=== PATIENT | male | born 1965 | race Caucasian/White ===

== ENCOUNTER 2018-08-28 07:56 | Day surgery (SDC) | payer BC ==
[~2018-08-28 07:56] MED LIST: Buffered Lidocaine 1% SYRIN* 1 ML/SYRINGE INTRADERM ONE; Dexamethasone IV* 4 MG/ML 1 ML (4 MG) IV SLOW PU ONE; Famotidine IV* 10 MG/ML 2 ML (20 mg) IV ONE; Lactated Ringers 1000 ML Bag* 1,000 ML IV SCH
[2018-08-28] MEDS ORDERED: Famotidine IV* 10 MG/ML 2 ML (20 mg) ONE (08:23)
[2018-08-28] MEDS ORDERED: Dexamethasone IV* 4 MG/ML 1 ML (4 MG) ONE (08:23)
[2018-08-28] MEDS ORDERED: ceFOXitin 2 GM IVPREMIX* 2 GM/50 ML BAG ONE (08:23)
[2018-08-28] MEDS ORDERED: Lidocaine 1% INJ* 10 MG/ML 30 ML SDV ONE (08:59)
[2018-08-28] MEDS ORDERED: Bupivacaine 0.5% W/EPI SDV* 30 ML VIAL ONE (08:59)
[2018-08-28] MEDS ORDERED: Midazolam* 1 MG/ML 5 ML VIAL (5 MG) ONE (09:06)
[2018-08-28] MEDS ORDERED: fentaNYL* 50 MCG/ML 5 ML VIAL (250 MCG VIAL) ONE (09:06)
[2018-08-28] MEDS ORDERED: Propofol* 10 MG/ML 20 ML BTL ONE ×2 (09:06→10:11)
[2018-08-28] MEDS ORDERED: Ketorolac INJ* 30 MG/ML 1 ML VIAL ONE (09:06)
[2018-08-28] MEDS ORDERED: Ondansetron INJ* 2 MG/ML VIAL ONE (09:09)
[2018-08-28] MEDS ORDERED: Lidocaine 2% PF * 5 ML VIAL ONE (09:22)
[2018-08-28] MEDS ORDERED: Glycopyrrolate IV* 0.2 MG/ML 1 ML VIAL ONE (10:10)
[2018-08-28] MEDS ORDERED: EPHEDrine (Pressors)* 50 MG/ML VIAL ONE (10:12)
[2018-08-28] MEDS ORDERED: Bacitracin OINTMENT* 0.5% 0.5 oz TUBE ONE (10:53)
[2018-08-28] MEDS ORDERED: oxyCODONE/Acetamin 5/325 MG* TAB PO ONE (11:14)
[2018-08-28] MEDS ORDERED: Ondansetron INJ* 2 MG/ML VIAL IV PRN (11:15)
[2018-08-28] MEDS ORDERED: Naloxone* 0.4 MG/ML 1 ML VIAL IV PRN (11:15)
[2018-08-28] MEDS ORDERED: oxyCODONE/Acetamin 5/325 MG* TAB PO PRN (11:15)
[2018-08-28] MEDS ORDERED: DiMENhydriNATE IV* 50 MG/ML VIAL IV PUSH PRN (11:15)
[2018-08-28] MEDS ORDERED: fentaNYL* 50 MCG/ML 2 ML VIAL (100 MCG VIAL) IV PRN (11:15)
[2018-08-28 12:14] VITALS: BP 106/71
--- NOTE | 2018-08-28 22:17 | OP ---
DATE OF OPERATION: 08/28/18 - [facility] DATE OF : 65 SURGEON: Dr. Rosas. RETIREMENT ADMINISTRATOR: Marcela Dubon NP. ANESTHESIOLOGIST: Dr. Vickers. ANESTHESIA: General with local. PRE-OP DIAGNOSIS: Tubulovillous adenoma on the distal rectum. POST-OP DIAGNOSIS: Tubulovillous adenoma on the distal rectum. OPERATIVE PROCEDURE: Transanal excision of a tubulovillous adenoma on the distal rectum. ESTIMATED BLOOD LOSS: Minimal. WOUND CLASSIFICATION: IV. SPECIMENS: Rectal polyp. DESCRIPTION OF PROCEDURE: Written informed consent was obtained, and preoperative antibiotics were administered. The patient was taken to the operating room and placed in the supine position and general anesthesia was administered. He was then placed in the prone brenda knife position. The buttocks were taped open. Sequential compression devices and warming blanket were applied. The perineum and buttocks were prepped and draped in the usual sterile fashion. Time-out verification was completed. 0.5% Marcaine mixed with 1% lidocaine with epinephrine was used and then performed standard perianal block in all 4 quadrants and the anal verge. Digital rectal exam showed slight decreased tone due to anesthesia. No evidence of blood or mass. The preoperative prep was excellent. On palpation, I was able to anteriorly appreciate a soft fleshy mass at approximately 8 cm. Using retractors, I was able to identify the polyp which appeared to be about 2 cm x 3 cm and was lobulated and wide based. Several stitches of 0 Vicryl sutures were placed proximal on the rectal mucosa to pull this down into the field of view. I placed several other sutures distal to this to outline the polyp. I did grasp this once with an Allis and some of the polyp was removed inadvertently, but this was sent for specimen. The polyp was then removed with cautery with care to complete the excisional margins. The specimen was passed off. The mucosal defect was then closed with interrupted 0 Vicryl sutures as well. Hemostasis was assured. I was able to then visualize the excision. It appeared to be complete. A 4x4 gauze packing was placed in the anal canal. The patient tolerated the procedure well and was taken to recovery room in stable condition. [id number]/[facility] #: [id number] [facility] HOSPITALParmjit
== END 2018-08-29 09:13 | disposition home or self-care (01) ==
LOC: OR 07:56
PROVIDERS: ATTEND Surgery
DX: D12.8 Benign neoplasm of rectum (principal); E78.00 Pure hypercholesterolemia, unspecified
CPT/HCPCS: 88305; A9270-GY; J0694; J1100; J1885; J2250; J2405; J2704; J3010